=== PATIENT | male | born 1950 | race Caucasian/White ===

== ENCOUNTER 2019-10-15 12:54 | Emergency (ER) | payer MEDICARE ==
[~2019-10-15] VITALS: Ht 182.9 cm; Wt 102.0 kg
[2019-10-15 13:22] LABS: BASOPHILS # (AUTO) 0.1 X10'3 (0-0.2); BASOPHILS % (AUTO) 0.5 % (0-1); EOSINOPHILS # (AUTO) 0.3 X10'3 (0-0.9); EOSINOPHILS % (AUTO) 3.2 % (0-6); HEMATOCRIT 49.8 % (42.0-52.0); HEMOGLOBIN 17.2 g/dl (14.0-17.9); LYMPHOCYTES # (AUTO) 1.4 X10'3 (1.1-4.8); MEAN CORPUSCULAR HEMOGLOBIN 30.7 PG (27.0-31.0); MEAN CORPUSCULAR HGB CONC 34.5 g/dL (33.0-36.5); MEAN CORPUSCULAR VOLUME 88.9 FL (78-98); MEAN PLATELET VOLUME 6.3 FL (7.4-10.4); MONOCYTES # (AUTO) 1.1 X10'3 (0-0.9); MONOCYTES % (AUTO) 10.5 % (2-12); NEUTROPHILS # (AUTO) 7.8 X10'3 (1.8-7.7); NEUTROPHILS % (AUTO) 72.8 % (42-75); PLATELET COUNT 273 X10'3 (140-440); RED BLOOD COUNT 5.59 X10'6 (4.70-6.10); RED CELL DISTRIBUTION WIDTH 14.7 % (11.5-14.5); WHITE BLOOD COUNT 10.8 X10'3 (4.5-11.0)
[2019-10-15 13:41] LABS: ALANINE AMINOTRANSFERASE 27 U/L (12-78); ALBUMIN 3.2 G/DL (3.4-5.0); ALBUMIN/GLOBULIN RATIO 0.7 (1.1-1.5); ALKALINE PHOSPHATASE 106 IU/L (46-116); ANION GAP 3 (8-16); ASPARTATE AMINO TRANSFERASE 23 U/L (10-37); BILIRUBIN,TOTAL 0.8 MG/DL (0.1-1.0); BLOOD UREA NITROGEN 12 MG/DL (7-18); CALCIUM 9.4 MG/DL (8.5-10.1); CHLORIDE 105 MMOL/L (99-107); GLUCOSE 118 MG/DL (70-104); POTASSIUM 3.9 MMOL/L (3.5-5.1); SODIUM 140 MMOL/L (135-145); TOTAL PROTEIN 7.5 G/DL (6.4-8.2); eGFR 60 ML/MIN
[2019-10-15 13:47] LABS: MAGNESIUM 2.1 MG/DL (1.5-2.4)
[2019-10-15 15:08] VITALS: BP 146/99
== END 2019-10-15 15:44 | disposition home or self-care (01) ==
LOC: ER 12:54
DX: J90 Pleural effusion, not elsewhere classified (principal); C20 Malignant neoplasm of rectum
CPT/HCPCS: 32555; 36415; 71045; 71046; 80053; 83735; 83880; 84484; 85025; 93005; 99285

== ENCOUNTER 2019-10-18 11:18 | Day surgery (SDC) | payer MEDICARE, OTHER ==
[2019-10-18] VITALS (10 sets, daily range): BP systolic 106–160; BP diastolic 63–102
[~2019-10-18] VITALS: Ht 180.3 cm; Wt 102.2 kg
[2019-10-18] MEDS ORDERED: normal saline 1000ml 1,000 ML IV PRN (11:35)
[2019-10-18] MEDS ORDERED: ASPI-1265 PO (12:10)
[2019-10-18] MEDS ORDERED: CARV40CP PO (12:10)
[2019-10-18] MEDS ORDERED: IRBE300T43 PO (12:10)
[2019-10-18] MEDS ORDERED: CHOL200052 PO (12:10)
[2019-10-18] MEDS ORDERED: OMEG1CAP2 PO (12:10)
[2019-10-18] MEDS ORDERED: ATOR40TA PO (12:10)
[2019-10-18] MEDS ORDERED: FAMO20TA8 PO (12:10)
[2019-10-18 12:28] LABS: BASOPHILS # (AUTO) 0.1 X10'3 (0-0.2); BASOPHILS % (AUTO) 0.7 % (0-1); EOSINOPHILS # (AUTO) 0.5 X10'3 (0-0.9); EOSINOPHILS % (AUTO) 5.1 % (0-6); HEMOGLOBIN 15.5 g/dl (14.0-17.9); LYMPHOCYTES # (AUTO) 1.1 X10'3 (1.1-4.8); LYMPHOCYTES % (AUTO) 11.7 % (21-51); MEAN CORPUSCULAR HEMOGLOBIN 30.3 PG (27.0-31.0); MEAN CORPUSCULAR HGB CONC 34.5 g/dL (33.0-36.5); MEAN CORPUSCULAR VOLUME 87.9 FL (78-98); MEAN PLATELET VOLUME 6.4 FL (7.4-10.4); MONOCYTES % (AUTO) 10.2 % (2-12); NEUTROPHILS # (AUTO) 6.8 X10'3 (1.8-7.7); NEUTROPHILS % (AUTO) 72.3 % (42-75); PLATELET COUNT 235 X10'3 (140-440); RED BLOOD COUNT 5.12 X10'6 (4.70-6.10); WHITE BLOOD COUNT 9.4 X10'3 (4.5-11.0)
[2019-10-18] MEDS ORDERED: midazolam 2 mg/2 ml injection ONE ×2 (13:24→14:17)
[2019-10-18] MEDS ORDERED: fentaNYL/PF 50MCG/1 ML 2ML syringe ONE ×2 (13:24→14:17)
[2019-10-18] MEDS ORDERED: heparin sodium, porcine/PF 100unit/ml 5ML syringe ONE (13:27)
[2019-10-18] MEDS ORDERED: LIDOcaine 1%/PF 5ML 10 MG/ML VIAL ONE (13:27)
== END 2019-10-18 17:15 | disposition home or self-care (01) ==
LOC: SSTAY O 11:18
PROVIDERS: ATTEND Radiology Vascular & Interventional Radiology
DX: C21.1 Malignant neoplasm of anal canal (principal); C78.02 Secondary malignant neoplasm of left lung; C78.01 Secondary malignant neoplasm of right lung; J90 Pleural effusion, not elsewhere classified; Z98.890 Other specified postprocedural states; Z79.899 Other long term (current) drug therapy; Z79.82 Long term (current) use of aspirin
CPT/HCPCS: 10005; 32555; 36415; 36561; 71046; 76937; 77001; 85025; 85610; 88341; 88342; 99152; 99153; C1729; C1769; C1788; C1894; J1642; J2250; J3010; 88173; 88305

== ENCOUNTER 2019-10-22 11:58 | Emergency (ER) | payer MEDICARE, OTHER ==
[~2019-10-22] VITALS: Ht 180.3 cm; Wt 101.0 kg
[~2019-10-22 11:58] MED LIST: ASPI-1265 PO; ATOR40TA PO; CARV40CP PO; CHOL200052 PO; FAMO20TA8 PO; IRBE300T43 PO; OMEG1CAP2 PO
--- NOTE | 2019-10-22 12:01 | NUR ---
per dr rivera pt does not need acs work up pt need thoracentesis.
[2019-10-22] MEDS ORDERED: LIDOcaine 1% W/epiNEPHrine 1:100,000 20ml vial SQ ONE (12:45)
--- NOTE | 2019-10-22 13:03 | NUR ---
RELIEVING RN FOR BREAK, DR GREENFS AT BEDSIDE FOR THORACENTESIS
--- NOTE | 2019-10-22 13:08 | NUR ---
DR LEIVA GAVE VERBAL ORDER FOR CBC, CMP. RED FLUID DRAINING IN BOTTLE, PT IS TOLERATING PROCEDURE WELL
--- NOTE | 2019-10-22 13:24 | NUR ---
PROCEDURE FINISHED, 2 LITERS OF RED FLUID REMOVED, PT IS LYING QUIELTY ON BED, RESP EVEN AND UNLABORED
[2019-10-22 13:25] VITALS: BP 147/88
[2019-10-22 13:25] LABS: BASOPHILS # (AUTO) 0.2 X10'3 (0-0.2); BASOPHILS % (AUTO) 1.5 % (0-1); EOSINOPHILS # (AUTO) 0.5 X10'3 (0-0.9); EOSINOPHILS % (AUTO) 3.9 % (0-6); HEMATOCRIT 43.2 % (42.0-52.0); HEMOGLOBIN 14.5 g/dl (14.0-17.9); LYMPHOCYTES # (AUTO) 1.1 X10'3 (1.1-4.8); LYMPHOCYTES % (AUTO) 9.3 % (21-51); MEAN CORPUSCULAR HEMOGLOBIN 29.6 PG (27.0-31.0); MEAN CORPUSCULAR HGB CONC 33.6 g/dL (33.0-36.5); MEAN CORPUSCULAR VOLUME 87.9 FL (78-98); MEAN PLATELET VOLUME 6.4 FL (7.4-10.4); MONOCYTES # (AUTO) 1.4 X10'3 (0-0.9); MONOCYTES % (AUTO) 11.6 % (2-12); NEUTROPHILS # (AUTO) 8.9 X10'3 (1.8-7.7); NEUTROPHILS % (AUTO) 73.7 % (42-75); PLATELET COUNT 300 X10'3 (140-440); RED BLOOD COUNT 4.91 X10'6 (4.70-6.10); RED CELL DISTRIBUTION WIDTH 14.7 % (11.5-14.5)
[2019-10-22 13:41] LABS: ALANINE AMINOTRANSFERASE 28 U/L (12-78); ALBUMIN 2.7 G/DL (3.4-5.0); ALBUMIN/GLOBULIN RATIO 0.7 (1.1-1.5); ALKALINE PHOSPHATASE 91 IU/L (46-116); ANION GAP 1 (8-16); ASPARTATE AMINO TRANSFERASE 22 U/L (10-37); BILIRUBIN,TOTAL 0.7 MG/DL (0.1-1.0); BLOOD UREA NITROGEN 13 MG/DL (7-18); BUN/CREATININE RATIO 11.7 (5.4-32.0); CALCIUM 9.2 MG/DL (8.5-10.1); CHLORIDE 104 MMOL/L (99-107); CREATININE 1.11 MG/DL (0.60-1.10); GLUCOSE 121 MG/DL (70-104); POTASSIUM 5.1 MMOL/L (3.5-5.1); SODIUM 140 MMOL/L (135-145); TOTAL CARBON DIOXIDE 34.6 MMOL/L (24-32); TOTAL PROTEIN 6.6 G/DL (6.4-8.2); eGFR 65 ML/MIN
== END 2019-10-22 14:21 | disposition home or self-care (01) ==
LOC: ER 11:59
DX: J90 Pleural effusion, not elsewhere classified (principal); C34.92 Malignant neoplasm of unspecified part of left bronchus or lung; I25.10 Atherosclerotic heart disease of native coronary artery without angina pectoris; Z98.61 Coronary angioplasty status; Z98.890 Other specified postprocedural states; Z79.82 Long term (current) use of aspirin; Z79.899 Other long term (current) drug therapy
CPT/HCPCS: 32555; 36415; 71045; 80053; 85025; 99283; 99285

== ENCOUNTER 2019-10-25 08:28 | Day surgery (SDC) | payer MEDICARE, OTHER ==
[~2019-10-25] VITALS: Ht 180.3 cm; Wt 101.7 kg
[2019-10-25 08:47] VITALS: BP 136/86
[2019-10-25 09:30] VITALS: BP 135/85
[2019-10-25 10:00] VITALS: BP 135/85
== END 2019-10-25 10:00 | disposition home or self-care (01) ==
LOC: SSTAY O 08:28
PROVIDERS: ATTEND Radiology Vascular & Interventional Radiology
DX: J90 Pleural effusion, not elsewhere classified (principal); I25.10 Atherosclerotic heart disease of native coronary artery without angina pectoris; I10 Essential (primary) hypertension; Z79.899 Other long term (current) drug therapy; Z79.82 Long term (current) use of aspirin; Z88.8 Allergy status to other drugs, medicaments and biological substances; Z86.010 Personal history of colon polyps; Z98.890 Other specified postprocedural states; Z85.048 Personal history of other malignant neoplasm of rectum, rectosigmoid junction, and anus
CPT/HCPCS: 76604; 76705

== ENCOUNTER 2019-10-26 15:13 | Emergency (ER) | payer MEDICARE, OTHER ==
[~2019-10-26] VITALS: Ht 180.3 cm; Wt 101.2 kg
[2019-10-26] MEDS ORDERED: LIDOcaine 1% W/epiNEPHrine 1:200,000 10ml vial IJ ONE (16:35)
[2019-10-26 18:40] VITALS: BP 152/91
== END 2019-10-26 18:42 | disposition home or self-care (01) ==
LOC: ER 15:13
DX: J90 Pleural effusion, not elsewhere classified (principal); I25.10 Atherosclerotic heart disease of native coronary artery without angina pectoris; Z98.61 Coronary angioplasty status; Z98.890 Other specified postprocedural states; Z79.82 Long term (current) use of aspirin; Z79.899 Other long term (current) drug therapy
CPT/HCPCS: 32555; 71045; 93005; 99285

== ENCOUNTER 2022-11-10 06:09 | Day surgery (SDC) | payer MEDICARE, OTHER ==
[2022-11-09 15:35] LABS: BASOPHILS # (AUTO) 0.1 X10'3 (0-0.2); BASOPHILS % (AUTO) 0.7 % (0-1); EOSINOPHILS % (AUTO) 14.5 % (0-6); HEMATOCRIT 48.3 % (42.0-52.0); HEMOGLOBIN 15.9 g/dl (14.0-17.9); LYMPHOCYTES # (AUTO) 1.3 X10'3 (1.1-4.8); LYMPHOCYTES % (AUTO) 18.4 % (21-51); MEAN CORPUSCULAR HEMOGLOBIN 29.8 PG (27.0-31.0); MEAN CORPUSCULAR HGB CONC 32.9 g/dL (33.0-36.5); MEAN CORPUSCULAR VOLUME 90.8 FL (78-98); MEAN PLATELET VOLUME 7.2 FL (7.4-10.4); MONOCYTES # (AUTO) 0.8 X10'3 (0-0.9); MONOCYTES % (AUTO) 10.5 % (2-12); NEUTROPHILS % (AUTO) 55.9 % (42-75); PLATELET COUNT 165 X10'3 (140-440); RED BLOOD COUNT 5.33 X10'6 (4.70-6.10); RED CELL DISTRIBUTION WIDTH 15.8 % (11.5-14.5); WHITE BLOOD COUNT 7.2 X10'3 (4.5-11.0)
[2022-11-09 15:46] LABS: ALBUMIN 3.7 G/DL (3.4-5.0); ANION GAP 6 (8-16); BLOOD UREA NITROGEN 20 MG/DL (7-18); BUN/CREATININE RATIO 18.3 (5.4-32.0); CALCIUM 9.4 MG/DL (8.5-10.1); CHLORIDE 106 MMOL/L (99-107); CREATININE 1.09 MG/DL (0.60-1.10); GLUCOSE 102 MG/DL (70-104); POTASSIUM 4.3 MMOL/L (3.5-5.1); SODIUM 144 MMOL/L (135-145); TOTAL CARBON DIOXIDE 32.2 MMOL/L (24-32); eGFR 66 ML/MIN
[2022-11-09 15:50] LABS: APTT 28 SECONDS (22-32)
[2022-11-10] VITALS (12 sets, daily range): BP systolic 138–163; BP diastolic 59–72
[~2022-11-10] VITALS: Ht 180.3 cm; Wt 106.9 kg
[~2022-11-10 06:09] MED LIST changes: -ASPI-1265 PO; +ASPI81TA48 PO; +IPRA4AER PO; +TURM500C4 PO
[2022-11-10] MEDS ORDERED: diphenhydrAMINE 25mg capsule PO PRN (06:25)
[2022-11-10] MEDS ORDERED: LORazepam 0.5 MG tablet PO PRN (06:25)
[2022-11-10] MEDS ORDERED: LEVO75CA2 PO (07:35)
[2022-11-10] MEDS ORDERED: FURO20TA4 PO (07:35)
[2022-11-10] MEDS ORDERED: IRBE150T24 PO (07:35)
[2022-11-10] MEDS ORDERED: MELO-102 PO (07:35)
[2022-11-10] MEDS ORDERED: POTA-207 PO (07:37)
[2022-11-10] MEDS ORDERED: SILD100T70 PO (07:37)
[2022-11-10] MEDS ORDERED: OMEG-5 PO (07:39)
[2022-11-10] MEDS ORDERED: TUMERIC PO (07:39)
[2022-11-10] MEDS ORDERED: LIDOcaine 1% (10mg/ml) 2ml vial ONE (07:41)
[2022-11-10] MEDS ORDERED: fentaNYL/PF 50MCG/1 ML 2ML syringe ONE ×2 (07:41→09:44)
[2022-11-10] MEDS ORDERED: verapamil 2.5 mg/ml inj IV ONE (07:41)
[2022-11-10] MEDS ORDERED: midazolam 1 mg/ML 2ml injection ONE (07:41)
[2022-11-10] MEDS ORDERED: iohexol 350 MG/ML 50ML vial IV ONE (07:41)
[2022-11-10] MEDS ORDERED: iohexol 350MG/ML 100ml bottle IV ONE ×2 (07:41→08:37)
[2022-11-10] MEDS ORDERED: nitroGLYCERIN-Tridil 50MG/D5W 250 ML IV ONE (07:41)
[2022-11-10] MEDS ORDERED: heparin 1,000unit/ml 10ml vial 10 ML ONE (07:41)
[2022-11-10] MEDS ORDERED: heparin 25,000 UNIT/250ml bag 250 ML IV ONE (08:37)
[2022-11-10 08:45] LABS: ISTAT Hct ART 44 %PCV (42-52); ISTAT O2 SATURATION ARTERIAL 84 % (95-98); ISTAT SOURCE ART
[2022-11-10] MEDS ORDERED: clopidogrel 300mg tablet ONE (09:44)
[2022-11-10] MEDS ORDERED: normal saline 1000ml 1,000 ML IV SCH (10:40)
[2022-11-10] MEDS ORDERED: HYDROcodone/acetaminophen 10/325mg tab PO PRN (10:45)
[2022-11-10] MEDS ORDERED: HYDROcodone/acetaminophen 5mg/325mg tablet PO PRN (10:45)
[2022-11-10 11:20] LABS: ISTAT Hct MIX 42 %PCV (42-52); ISTAT O2 SATURATION MIX VENOUS 71 % (60-80); ISTAT SOURCE VEN
[2022-11-11] MEDS ORDERED: clopidogrel 75mg tablet PO SCH (08:00)
== END 2022-11-10 16:45 | disposition home or self-care (01) ==
LOC: SSTAY O 06:09
PROVIDERS: ATTEND Internal Medicine Cardiovascular Disease
DX: R94.39 Abnormal result of other cardiovascular function study (principal); I25.10 Atherosclerotic heart disease of native coronary artery without angina pectoris; I10 Essential (primary) hypertension; E78.5 Hyperlipidemia, unspecified; I25.2 Old myocardial infarction; E66.9 Obesity, unspecified; Z68.33 Body mass index [BMI] 33.0-33.9, adult; Z85.118 Personal history of other malignant neoplasm of bronchus and lung; Z79.82 Long term (current) use of aspirin; Z79.899 Other long term (current) drug therapy; Z79.01 Long term (current) use of anticoagulants; Z95.5 Presence of coronary angioplasty implant and graft; Z85.048 Personal history of other malignant neoplasm of rectum, rectosigmoid junction, and anus; Z90.2 Acquired absence of lung [part of]; Z98.890 Other specified postprocedural states; Z87.891 Personal history of nicotine dependence; Z88.8 Allergy status to other drugs, medicaments and biological substances; Z82.49 Family history of ischemic heart disease and other diseases of the circulatory system
CPT/HCPCS: 36415; 76937; 80048; 82803; 85014; 85025; 85347; 85610; 85730; 93005; 93460; 99152; 99153; C1725; C1751; C1769; C1874; C1894; C9600; J1644; J2250; J3010; J3490; J7030; Q0163; Q9967; 92920; A6258; A6402

== ENCOUNTER 2025-06-12 10:34 | Outpatient (CLI) | payer MEDICARE, OTHER ==
[~2025-06-12] VITALS: Ht 180.3 cm; Wt 109.3 kg
[~2025-06-12 10:34] MED LIST changes: +FURO20TA4 PO; -IPRA4AER PO; +IRBE150T34 PO; +LEVO75CA2 PO; +MELO-102 PO; +OMEG-5 PO; +POTA-207 PO; +SILD100T70 PO; +TUMERIC PO; -TURM500C4 PO
[2025-06-12 11:15] VITALS: PULSE 56; RESP 18; O2SAT 94
[2025-06-12] MEDS: albuterol 2.5 MG/3 ML nebule NEB ONE (12:08)
--- NOTE | 2025-06-12 15:38 | PROCEDURE NOTE - Respiratory ---
Procedure Note-Respiratory Providers to CC Copies To 1: ANTOINE ENGLISH DO Procedure Name: This is a complete pulmonary function study dated June 12 2025. Spirometry measurements: Both the forced vital capacity and the FEV1 measurements are in the lower range of normal. The FEV1 ratio however is reduced. Some of the flow rate measurements are borderline reduced. After inhaled bronchodilator was administered, there is no appreciable change in the flow volume curve. Lung volume measurements: The total lung capacity is slightly reduced. The functional residual capacity and residual volume measurements are also borderline low. This suggests a restrictive ventilatory defect. Lung diffusion measurement: The DLCO measurement is clearly reduced. It is noted that the KVO measurement as well as the alveolar volume measurements are both reduced. This documents abnormal gas transfer abilities of the lungs. Airway resistance measurement: The airway resistance measurement is normal. Overall conclusion: This study is abnormal. There is evidence for obstructive ventilatory defect in the [id number] category. The patient shows little to no improvement with inhaled bronchodilator. These findings are consistent with the patient's history of COPD. In addition there is evidence for a restrictive ventilatory defect in the mild category. The lung diffusion capacity is clearly reduced. This patient should continue to use bronchodilator medication. We have no previous studies for comparison. PREM RODRÍGUEZ MD Jun 12, 2025 15:38
== END 2025-06-12 23:59 | disposition home or self-care (01) ==
LOC: RT 10:34
PROVIDERS: ATTEND Family Medicine
DX: J44.9 Chronic obstructive pulmonary disease, unspecified (principal)
CPT/HCPCS: 94060; 94727; 94729; 94760